=== PATIENT | female | born 1995 | race Caucasian/White ===

== ENCOUNTER 2016-10-27 14:06 | Observation (INO) | payer SELFPAY ==
[2016-10-27] MEDS ORDERED: IV RINGERS,LACTATED 1000ML 1,000 ML IV SCH (15:29)
== END 2016-10-27 15:33 | disposition home or self-care (01) ==
LOC: 3 SO LND 14:06
PROVIDERS: ADMIT Obstetrics & Gynecology; ATTEND Obstetrics & Gynecology
DX: O36.8120 Decreased fetal movements, second trimester, not applicable or unspecified (principal); Z3A.23 23 weeks gestation of pregnancy
CPT/HCPCS: G0378; G0379

== ENCOUNTER 2016-11-30 17:54 | Observation (INO) | payer SELFPAY ==
[2016-11-30] MEDS ORDERED: IV RINGERS,LACTATED 1000ML 1,000 ML IV SCH (19:06)
[2016-11-30 19:21] LABS: BILIRUBIN,URINE NEGATIVE (NEG); GLUCOSE,URINE NEGATIVE (NEG); NITRITE,URINE NEGATIVE (NEG); PROTEIN,URINE NEGATIVE (NEG-TRACE); UROBILINOGEN,URINE 0.2 mg/dL (0.2 mg/dL)
[2016-11-30 19:27] LABS: BACTERIA,URINE FEW /HPF (0-FEW); RBC,URINE 0 /HPF (0-2); SQUAMOUS EPITHELIAL CELL,UR FEW /LPF
[2016-11-30 19:36] LABS: BARBITURATES NEG (NEG); BENZODIAZEPINES NEG (NEG); CANNABINOIDS NEG (NEG); COCAINE NEG (NEG); METHADONE NEG (NEG); OPIATES NEG (NEG); PHENCYCLIDINE NEG (NEG)
[2016-11-30 20:16] LABS: NEG OBC AMNIO NEG; POS OBC AMNIO POS
--- NOTE | 2016-11-30 21:43 | RAD ---
Limited OB ultrasound History: Patient felt a gush of water previous night. Comparison: None. Findings: There is a single intrauterine gestation in cephalic presentation. The placenta is posterior in location without evidence of placenta previa. The amount of amniotic fluid appears appropriate. Amniotic fluid index is 13.0 cm. Cervix is not well seen. Biometric data is as follows: BPD = 6.64 cm for 26 weeks 5 days. HC = 24.73 cm for 26 weeks 6 days. AC = 20.70 cm for 25 weeks 2 days. FL = 4.89 cm for 26 weeks 3 days. HC/AC = 1.19, within normal limits. Overall, the average ultrasound age is 26 weeks 2 days for an estimated date of delivery of March 06, 2017. Estimated gestational age by last menstrual period calculation is 26 weeks 1 day. Estimated weight is 870 +/- 129 grams which is at 44th percentile. heart rate is 145 bpm. Survey of anomalies was not performed. IMPRESSION: 1. Single live intrauterine with average ultrasound age of 26 weeks 2 days. Estimated date of delivery is March 06, 2017. 2. Amniotic fluid index is 13.0 cm, within normal limits. Electronically signed by: Selwyn Hicks MD (11/30/2016 9:39 PM) [facility]
--- NOTE | 2016-12-01 13:31 | CONS ---
DATE OF CONSULTATION: 11/30/2016 The patient presented to L and D with complaints of questionable rupture of membranes. HISTORY OF PRESENT ILLNESS: This is a 21-year-old white female 3, para 1, estimated gestational age of 26 weeks with an EDC of 03/07/2017. The patient conveyed to nursing staff a history of leakage of fluid starting around 1835 hours on Wednesday. The patient worked throughout the day, noticed minimal amount of moisture in her underwear. She reports good movement. Denies any fevers or chills. Denies any uterine contractions. The patient is receiving her care with Dr. Beth. The patient's workup in the labor and delivery unit consisted of AmniSure being performed by nursing staff which was negative. Peritoneum was noted to be dry. She underwent ultrasound examination showing an LILIAM of 13, single intrauterine gestation with cephalic presentation. heart tones are positive both on ultrasound as well as on Doppler studies in the 140s, reassuring for gestational age. Tocometer demonstrates no uterine contractions. IMPRESSION: Intrauterine 26 weeks gestation. No evidence to suggest rupture of membranes. RECOMMENDATIONS: The patient is given routine antepartum precautions. Her workup is negative here in the OB triage area. We instructed the patient to follow up with her primary practice administrator later in the week. Otherwise, the patient was given routine precautions and return to the OB triage area should her status change. JARROD LUNDBERG DO DR: SUSANNAH/dory JOB#: [id number] / [id number]
== END 2016-11-30 21:25 | disposition home or self-care (01) ==
LOC: 3 SO LND 17:54
DX: O42.912 Preterm premature rupture of membranes, unspecified as to length of time between rupture and onset of labor, second trimester (principal); Z3A.26 26 weeks gestation of pregnancy
CPT/HCPCS: 36415; 76815; 80307; 81001; 84112; 87086; G0378; G0379; G0479